=== PATIENT | female | born 1960 ===

== ENCOUNTER → 2020-12-06 | Outpatient (CLI) | payer OTHER | LOC: CAT 12-03 13:59 | DX: Z13.6 Encounter for screening for cardiovascular disorders (principal); I25.10 Atherosclerotic heart disease of native coronary artery without angina pectoris; E78.00 Pure hypercholesterolemia, unspecified ==

== ENCOUNTER → 2021-07-25 | Outpatient (CLI) | payer OTHER | LOC: SJCVCIMAG 10:11 | PROVIDERS: ATTEND Internal Medicine | DX: R00.0 Tachycardia, unspecified (principal); I25.10 Atherosclerotic heart disease of native coronary artery without angina pectoris; I10 Essential (primary) hypertension; R93.1 Abnormal findings on diagnostic imaging of heart and coronary circulation; E78.5 Hyperlipidemia, unspecified; K21.9 Gastro-esophageal reflux disease without esophagitis; F41.9 Anxiety disorder, unspecified; F12.980 Cannabis use, unspecified with anxiety disorder; Z87.891 Personal history of nicotine dependence ==